=== PATIENT | female | born 1995 | race Caucasian/White ===

== ENCOUNTER 2017-10-14 12:30 | Emergency (ER) | payer SELFPAY ==
[~2017-10-14] VITALS: Ht 152.4 cm; Wt 57.8 kg
[~2017-10-14 12:30] MED LIST: BACTRIM DS1 TAB PO; CEPHALEXIN500 MG PO; IBUPROFEN600 MG PO; KEFLEX500 MG OR; LORTAB 7.57.5 MG PO; MUPIROCIN2 % EX; PRE-NATAL PO; ULTRAM50 M1 PO
[2017-10-14 13:31] LABS: URINE BILIRUBIN - DIPSTICK NEGATIVE (NEGATIVE); URINE BLOOD DIPSTICK NEGATIVE (NEGATIVE); URINE COLOR YELLOW; URINE GLUCOSE - DIPSTICK NEGATIVE (NEGATIVE); URINE KETONE NEGATIVE (NEGATIVE); URINE LEUK ESTERASE NEGATIVE (NEGATIVE); URINE NITRITE - DIPSTICK NEGATIVE (Negative); URINE PROTEIN - DIPSTICK NEGATIVE (NEG-TRACE); URINE UROBILINOGEN - DIPSTICK 0.2 E.U./dL (0.2)
[2017-10-14 13:32] LABS: URINE CLARITY CLEAR
[2017-10-14 13:34] LABS: BARBITURATES NEGATIVE (NEGATIVE); COCAINE NEGATIVE (NEGATIVE); METHADONE NEGATIVE (NEGATIVE); TETRAHYDROCANNABIONOL NEGATIVE (NEGATIVE); TRICYLIC ANTIDEPRESSANTS NEGATIVE (NEGATIVE)
[2017-10-14 13:35] LABS: OXCYCODONE NEGATIVE (NEGATIVE)
[2017-10-14 13:56] VITALS: BP 121/81
== END 2017-10-14 13:54 | disposition left against medical advice (07) | DRG 93 ==
LOC: ED 12:30
PROVIDERS: Emergency Medicine
DX: R20.0 Anesthesia of skin (principal); F17.210 Nicotine dependence, cigarettes, uncomplicated; Z91.19 Patient's noncompliance with other medical treatment and regimen

== ENCOUNTER 2017-10-25 15:13 | Emergency (ER) | payer SELFPAY ==
[~2017-10-25] VITALS: Ht 152.4 cm; Wt 80.0 kg
[2017-10-25] MEDS ORDERED: DOXYCYCL HYC100 MG PO (15:36)
[2017-10-25 15:48] VITALS: BP 156/88
== END 2017-10-25 15:57 | disposition home or self-care (01) | DRG 605 ==
LOC: ED 15:13
DX: S81.812A Laceration without foreign body, left lower leg, initial encounter (principal); F17.210 Nicotine dependence, cigarettes, uncomplicated; W20.8XXA Other cause of strike by thrown, projected or falling object, initial encounter; Y93.89 Activity, other specified

== ENCOUNTER 2018-07-04 09:52 | Emergency (ER) | payer SELFPAY ==
[~2018-07-04] VITALS: Ht 152.4 cm; Wt 60.0 kg
[~2018-07-04 09:52] MED LIST changes: +DOXYCYCL HYC100 MG PO
[2018-07-04] MEDS ORDERED: ULTRAM50 M1 PO (10:38)
[2018-07-04 10:46] VITALS: BP 113/64
== END 2018-07-04 10:52 | disposition home or self-care (01) | DRG 605 ==
LOC: ED 09:52
DX: S50.311A Abrasion of right elbow, initial encounter (principal); S80.211A Abrasion, right knee, initial encounter; F17.200 Nicotine dependence, unspecified, uncomplicated; V18.0XXA Pedal cycle driver injured in noncollision transport accident in nontraffic accident, initial encounter; Y93.55 Activity, bike riding

== ENCOUNTER 2019-01-03 14:05 | Emergency (ER) | payer SELFPAY ==
[~2019-01-03] VITALS: Ht 152.4 cm; Wt 70.0 kg
[2019-01-03 15:00] VITALS: BP 111/68
== END 2019-01-03 15:00 | disposition home or self-care (01) | DRG 605 ==
LOC: ED 14:05
PROC: 0HQGXZZ Repair Left Hand Skin, External Approach (ICD-10-PCS; principal; 2019-01-03)
DX: S61.412A Laceration without foreign body of left hand, initial encounter (principal); F17.210 Nicotine dependence, cigarettes, uncomplicated; W26.0XXA Contact with knife, initial encounter; Y92.009 Unspecified place in unspecified non-institutional (private) residence as the place of occurrence of the external cause

== ENCOUNTER 2019-03-11 11:07 | Emergency (ER) | payer SELFPAY ==
[~2019-03-11] VITALS: Ht 152.4 cm; Wt 65.0 kg
[2019-03-11 11:36] LABS: HEMATOCRIT 37.1 % (37.0-47.0); HEMOGLOBIN 12.4 g/dl (12.0-16.0); IMMATURE GRANULOCYTES 0.4 % (0.0-5.0); MEAN CELL VOLUME 84.7 fL CALC (80.0-100.0); MEAN CORPUSCULAR HGB 28.3 pG CALC (26.0-32.0); MEAN CORPUSCULAR HGB CONC 33.4 g/L CALC (32.0-36.0); NEUT# 5.05 thou/uL (2.00-7.15); RED BLOOD COUNT 4.38 mill/uL (4.20-5.60); RED CELL DISTRI WIDTH 12.7 % (11.5-15.5)
[2019-03-11 12:00] LABS: URINE BILIRUBIN - DIPSTICK NEGATIVE (NEGATIVE); URINE BLOOD DIPSTICK NEGATIVE (NEGATIVE); URINE COLOR YELLOW; URINE GLUCOSE - DIPSTICK NEGATIVE (NEGATIVE); URINE KETONE NEGATIVE (NEGATIVE); URINE LEUK ESTERASE NEGATIVE (NEGATIVE); URINE NITRITE - DIPSTICK NEGATIVE (Negative); URINE PROTEIN - DIPSTICK NEGATIVE (NEG-TRACE); URINE UROBILINOGEN - DIPSTICK 0.2 E.U./dL (0.2)
[2019-03-11 12:06] LABS: ALBUMIN 3.9 g/dL (3.2-5.0); ALKALINE PHOSPHATASE 102 u/l (38-126); ANION GAP 12 (6-22 (CALC)); BILIRUBIN, TOTAL 0.5 mg/dL (0.0-1.4); BUN 14 mg/dL (7-17); BUN/CREATININE RATIO 26 (12-20 (CALC)); CHLORIDE 109 mmol/l (95-108); CREATININE 0.5 mg/dL (0.5-1.0); GFR > 60 ML/MIN (>=60 (CALC)); GFR FOR AFR.AMER. > 60 ML/MIN (>=60 (CALC)); LIPASE 42 u/l (23-300); POTASSIUM 4.1 mmol/l (3.5-5.1); SGOT/AST 23 u/l (14-36); SODIUM 139 mmol/l (137-146)
[2019-03-11 12:07] LABS: BARBITURATES NEGATIVE (NEGATIVE); COCAINE NEGATIVE (NEGATIVE); METHADONE NEGATIVE (NEGATIVE); OXCYCODONE NEGATIVE (NEGATIVE); TETRAHYDROCANNABIONOL NEGATIVE (NEGATIVE); TRICYLIC ANTIDEPRESSANTS NEGATIVE (NEGATIVE)
[2019-03-11 12:08] LABS: CARBON DIOXIDE 22 mmol/l (22-30)
[2019-03-11] MEDS ORDERED: ZOFRAN4 MG/TAB PO (14:34)
[2019-03-11 14:37] VITALS: BP 109/62
== END 2019-03-11 14:50 | disposition home or self-care (01) | DRG 641 ==
LOC: ED 11:07
DX: E86.0 Dehydration (principal); F15.10 Other stimulant abuse, uncomplicated; R11.2 Nausea with vomiting, unspecified; R10.32 Left lower quadrant pain; R10.33 Periumbilical pain

== ENCOUNTER 2019-07-12 02:18 | Emergency (ER) | payer SELFPAY ==
[~2019-07-12] VITALS: Ht 152.4 cm; Wt 59.0 kg
[~2019-07-12 02:18] MED LIST changes: +ZOFRAN4 MG/TAB PO
[2019-07-12 03:26] VITALS: BP 126/64
== END 2019-07-12 03:31 | disposition home or self-care (01) | DRG 605 ==
LOC: ED 02:18
DX: S80.12XA Contusion of left lower leg, initial encounter (principal); W31.9XXA Contact with unspecified machinery, initial encounter

== ENCOUNTER 2021-02-28 17:02 | Emergency (ER) | payer SELFPAY ==
[~2021-02-28] VITALS: Ht 152.4 cm; Wt 70.0 kg
[2021-02-28 17:59] VITALS: BP 120/80
== END 2021-02-28 18:03 | disposition home or self-care (01) | DRG 605 ==
LOC: ED 17:02
PROC: 0HQGXZZ Repair Left Hand Skin, External Approach (ICD-10-PCS; principal; 2021-02-28)
DX: S61.412A Laceration without foreign body of left hand, initial encounter (principal); F17.210 Nicotine dependence, cigarettes, uncomplicated; W25.XXXA Contact with sharp glass, initial encounter; Y93.89 Activity, other specified; Y92.009 Unspecified place in unspecified non-institutional (private) residence as the place of occurrence of the external cause

== ENCOUNTER 2021-05-16 20:40 | Emergency (ER) | payer SELFPAY ==
[~2021-05-16] VITALS: Ht 149.9 cm; Wt 68.0 kg
[2021-05-16 20:45] VITALS: BP 119/54
[2021-05-16] MEDS ORDERED: CORTISPORIN OTI10 M2 AS (21:53)
== END 2021-05-16 22:05 | disposition home or self-care (01) | DRG 156 ==
LOC: ED 20:40
PROC: 09C47ZZ Extirpation of Matter from Left External Auditory Canal, Via Natural or Artificial Opening (ICD-10-PCS; principal; 2021-05-16)
DX: T16.2XXA Foreign body in left ear, initial encounter (principal); F17.200 Nicotine dependence, unspecified, uncomplicated; X58.XXXA Exposure to other specified factors, initial encounter

== ENCOUNTER 2021-06-28 20:56 | Emergency (ER) | payer SELFPAY ==
[~2021-06-28] VITALS: Ht 149.9 cm; Wt 73.0 kg
[~2021-06-28 20:56] MED LIST changes: +CORTISPORIN OTI10 M2 AS
[2021-06-28 21:30] VITALS: BP 124/86
== END 2021-06-28 22:10 | disposition home or self-care (01) | DRG 125 ==
LOC: ED 20:56
DX: T26.11XA Burn of cornea and conjunctival sac, right eye, initial encounter (principal); F17.210 Nicotine dependence, cigarettes, uncomplicated; X19.XXXA Contact with other heat and hot substances, initial encounter; Y92.009 Unspecified place in unspecified non-institutional (private) residence as the place of occurrence of the external cause

== ENCOUNTER 2022-01-20 13:06 | Emergency (ER) | payer SELFPAY ==
[~2022-01-20] VITALS: Ht 149.9 cm; Wt 68.0 kg
[2022-01-20 13:10] VITALS: BP 120/82
[2022-01-20 13:30] VITALS: BP 118/84
[2022-01-20 13:52] LABS: HEMATOCRIT 39.8 % (37.0-47.0); HEMOGLOBIN 12.9 g/dl (12.0-16.0); IMMATURE GRANULOCYTES 0.1 % (0.0-5.0); MEAN CELL VOLUME 87.5 fL CALC (80.0-100.0); MEAN CORPUSCULAR HGB 28.4 pG CALC (26.0-32.0); MEAN CORPUSCULAR HGB CONC 32.4 g/dL CAL (32.0-36.0); NEUT# 4.74 thou/uL (2.00-7.15); RED BLOOD COUNT 4.55 mill/uL (4.20-5.60); RED CELL DISTRI WIDTH 13.2 % (11.5-15.5)
[2022-01-20 14:00] VITALS: BP 109/78
[2022-01-20 14:21] LABS: ALBUMIN 4.1 g/dL (3.2-5.0); ALKALINE PHOSPHATASE 87 u/l (38-126); ANION GAP 13 (6-22 (CALC)); BILIRUBIN, TOTAL 0.7 mg/dL (0.0-1.4); BUN 17 mg/dL (7-17); BUN/CREATININE RATIO 19 (12-20 (CALC)); CARBON DIOXIDE 25 mmol/l (22-30); CHLORIDE 108 mmol/l (95-108); CREATININE 0.9 mg/dL (0.5-1.0); GFR > 60 ML/MIN (>=60 (CALC)); GFR FOR AFR.AMER. > 60 ML/MIN (>=60 (CALC)); LIPASE 40 u/l (23-300); POTASSIUM 3.9 mmol/l (3.5-5.1); SGOT/AST 22 u/l (14-36); SODIUM 142 mmol/l (137-146); TOTAL PROTEIN 7.6 g/dL (6.3-8.2)
[2022-01-20 14:37] LABS: URINE BILIRUBIN - DIPSTICK NEGATIVE (NEGATIVE); URINE BLOOD DIPSTICK LARGE (NEGATIVE); URINE COLOR YELLOW; URINE GLUCOSE - DIPSTICK NEGATIVE (NEGATIVE); URINE KETONE NEGATIVE (NEGATIVE); URINE LEUK ESTERASE NEGATIVE (NEGATIVE); URINE PROTEIN - DIPSTICK NEGATIVE (NEG-TRACE); URINE UROBILINOGEN - DIPSTICK 0.2 E.U./dL (0.2)
[2022-01-20 14:38] LABS: URINE NITRITE - DIPSTICK NEGATIVE (Negative)
[2022-01-20 14:44] LABS: URINE SQUAMOUS EPITHELIAL CELL FEW EPI/hpf (0-FEW)
[2022-01-20 15:49] VITALS: BP 109/78
== END 2022-01-20 15:45 | disposition left against medical advice (07) | DRG 392 ==
LOC: ED 13:06
PROVIDERS: Nurse Practitioner
DX: R10.32 Left lower quadrant pain (principal); F17.200 Nicotine dependence, unspecified, uncomplicated; Z91.19 Patient's noncompliance with other medical treatment and regimen

== ENCOUNTER 2022-07-19 04:21 | Emergency (ER) | payer SELFPAY ==
[~2022-07-19] VITALS: Ht 149.9 cm; Wt 68018.0 kg
[2022-07-19 04:33] VITALS: BP 133/94
[2022-07-19 04:45] VITALS: BP 124/86
[2022-07-19 05:00] VITALS: BP 126/88
[2022-07-19 05:15] VITALS: BP 132/71
[2022-07-19] MEDS ORDERED: BACTRIM DS1 TAB PO (05:27)
[2022-07-19 05:30] VITALS: BP 123/77
[2022-07-19 05:38] VITALS: BP 123/77
== END 2022-07-19 05:45 | disposition home or self-care (01) | DRG 603 ==
LOC: ED 04:21
DX: L03.115 Cellulitis of right lower limb (principal)

== ENCOUNTER 2022-08-30 21:16 | Emergency (ER) | payer SELFPAY ==
[2022-08-31] MEDS ORDERED: AMOXICILLIN500 MG PO (02:56)
== END 2022-08-30 21:55 | disposition left against medical advice (07) | DRG 951 ==
LOC: ED 21:16 → LWOBS 21:51
DX: Z53.21 Procedure and treatment not carried out due to patient leaving prior to being seen by health care provider (principal)

== ENCOUNTER 2022-08-31 02:28 | Emergency (ER) | payer SELFPAY ==
[~2022-08-31] VITALS: Ht 149.9 cm; Wt 63.0 kg
[2022-08-31] MEDS ORDERED: AMOXICILLIN500 MG PO (02:56)
[2022-08-31 02:57] VITALS: BP 112/76
== END 2022-08-31 03:16 | disposition home or self-care (01) | DRG 605 ==
LOC: ED 02:28
DX: S61.412A Laceration without foreign body of left hand, initial encounter (principal); W26.0XXA Contact with knife, initial encounter

== ENCOUNTER 2023-01-26 23:16 | Emergency (ER) | payer SELFPAY ==
[~2023-01-26] VITALS: Ht 149.9 cm; Wt 71.0 kg
[~2023-01-26 23:16] MED LIST changes: +AMOXICILLIN500 MG PO
[2023-01-27] MEDS ORDERED: VENTOLIN HFA IN (01:56)
[2023-01-27 02:00] VITALS: BP 118/72
== END 2023-01-27 02:03 | disposition home or self-care (01) | DRG 153 ==
LOC: ED 23:16
DX: J06.9 Acute upper respiratory infection, unspecified (principal); J98.01 Acute bronchospasm; F17.200 Nicotine dependence, unspecified, uncomplicated; Z20.822 Contact with and (suspected) exposure to COVID-19

== ENCOUNTER 2023-02-02 20:14 | Emergency (ER) | payer SELFPAY ==
[~2023-02-02] VITALS: Ht 149.9 cm; Wt 65.7 kg
[~2023-02-02 20:14] MED LIST changes: +VENTOLIN HFA IN
[2023-02-02 20:40] VITALS: BP 120/89
[2023-02-02 20:45] VITALS: BP 114/79
[2023-02-02] MEDS ORDERED: ULTRAM50 MG PO (20:55)
[2023-02-02] MEDS ORDERED: FLOXIN OTIC0.3 % AU (20:55)
[2023-02-02] MEDS ORDERED: AMOX/K CLAV875 M1 PO (20:55)
[2023-02-02 21:00] VITALS: BP 114/79; BP 117/89
== END 2023-02-02 21:27 | disposition home or self-care (01) | DRG 153 ==
LOC: ED 20:14
DX: H66.93 Otitis media, unspecified, bilateral (principal); F17.200 Nicotine dependence, unspecified, uncomplicated

== ENCOUNTER 2023-04-04 03:04 | Emergency (ER) | payer SELFPAY ==
[~2023-04-04] VITALS: Ht 149.9 cm; Wt 68.0 kg
[~2023-04-04 03:04] MED LIST changes: +AMOX/K CLAV875 M1 PO; +FLOXIN OTIC0.3 % AU; +ULTRAM50 MG PO
[2023-04-04] MEDS ORDERED: CETIRIZINE10 MG PO (04:40)
[2023-04-04] MEDS ORDERED: TRIAMCINOLON0.11 EX (04:40)
[2023-04-04] MEDS ORDERED: PREDNISONE20 MG PO (04:40)
[2023-04-04 05:20] VITALS: BP 121/71
== END 2023-04-04 05:20 | disposition home or self-care (01) | DRG 916 ==
LOC: ED 03:04
DX: T78.40XA Allergy, unspecified, initial encounter (principal); F17.200 Nicotine dependence, unspecified, uncomplicated; X58.XXXA Exposure to other specified factors, initial encounter

== ENCOUNTER 2023-04-09 00:07 | Emergency (ER) | payer SELFPAY ==
[~2023-04-09] VITALS: Ht 152.4 cm; Wt 65.7 kg
[~2023-04-09 00:07] MED LIST changes: +CETIRIZINE10 MG PO; +PREDNISONE20 MG PO; +TRIAMCINOLON0.11 EX
[2023-04-09 00:15] VITALS: BP 106/77
[2023-04-09] MEDS ORDERED: MUPIROCIN2 % EX (00:26)
[2023-04-09 00:30] VITALS: BP 98/56
[2023-04-09 00:45] VITALS: BP 106/81
== END 2023-04-09 00:45 | disposition home or self-care (01) | DRG 607 ==
LOC: ED 00:07
DX: S90.862A Insect bite (nonvenomous), left foot, initial encounter (principal); W57.XXXA Bitten or stung by nonvenomous insect and other nonvenomous arthropods, initial encounter

== ENCOUNTER 2023-04-27 00:42 | Emergency (ER) | payer SELFPAY ==
[~2023-04-27] VITALS: Ht 152.4 cm; Wt 63.0 kg
[2023-04-27 00:58] VITALS: BP 106/78
[2023-04-27 01:00] VITALS: BP 109/74
[2023-04-27 01:20] VITALS: BP 106/78
== END 2023-04-27 01:21 | disposition left against medical advice (07) | DRG 916 ==
LOC: ED 00:42
DX: T78.40XA Allergy, unspecified, initial encounter (principal); F17.210 Nicotine dependence, cigarettes, uncomplicated; X58.XXXA Exposure to other specified factors, initial encounter; Z53.29 Procedure and treatment not carried out because of patient's decision for other reasons

== ENCOUNTER 2023-10-10 18:09 | Emergency (ER) | payer SELFPAY ==
[~2023-10-10] VITALS: Ht 152.4 cm; Wt 65.8 kg
[2023-10-10 19:17] LABS: URINE BILIRUBIN - DIPSTICK Negative (NEGATIVE); URINE BLOOD DIPSTICK Moderate (NEGATIVE); URINE COLOR Yellow; URINE GLUCOSE - DIPSTICK Negative (NEGATIVE); URINE KETONE Negative (NEGATIVE); URINE LEUK ESTERASE Negative (NEGATIVE); URINE NITRITE - DIPSTICK Negative (Negative); URINE PROTEIN - DIPSTICK Negative (NEG-TRACE); URINE SPECIFIC GRAVITY >=1.030; URINE UROBILINOGEN - DIPSTICK 0.2 E.U./dL (0.2)
[2023-10-10] MEDS ORDERED: valACYclovir 500 MG TAB PO ONE (19:20)
[2023-10-10 19:30] LABS: URINE SQUAMOUS EPITHELIAL CELL FEW EPI/hpf (0-FEW); URINE WBC 0-2 WBC/hpf (0-5)
[2023-10-10] MEDS ORDERED: VALTREX1 GM PO (19:39)
[2023-10-10 20:10] VITALS: BP 122/70
== END 2023-10-10 20:12 | disposition home or self-care (01) | DRG 759 ==
LOC: ED 18:09
PROVIDERS: Nurse Practitioner
DX: A60.04 Herpesviral vulvovaginitis (principal); F17.210 Nicotine dependence, cigarettes, uncomplicated

== ENCOUNTER 2023-10-23 16:59 | Emergency (ER) | payer SELFPAY ==
[~2023-10-23] VITALS: Ht 152.4 cm; Wt 64.0 kg
[2023-10-23] VITALS (7 sets, daily range): BP systolic 99–122; BP diastolic 62–89
[~2023-10-23 16:59] MED LIST changes: +VALTREX1 GM PO
[2023-10-23] MEDS ORDERED: VIBRAMYCIN100 M2 PO (18:25)
[2023-10-23] MEDS ORDERED: DOXYCYCLINE HYCLATE 100 MG/CAP PO ONE (18:30)
== END 2023-10-23 18:41 | disposition home or self-care (01) | DRG 603 ==
LOC: ED 16:59
DX: L03.116 Cellulitis of left lower limb (principal); F17.200 Nicotine dependence, unspecified, uncomplicated

== ENCOUNTER 2024-03-02 01:00 | Emergency (ER) | payer SELFPAY ==
[~2024-03-02] VITALS: Ht 152.4 cm; Wt 66.0 kg
[~2024-03-02 01:00] MED LIST changes: +MOTRIN800 MG PO; +PERCOCET 5/321 COMBO PO; +VIBRAMYCIN100 M2 PO
[2024-03-02 02:29] VITALS: BP 126/83
== END 2024-03-02 02:29 | disposition home or self-care (01) | DRG 607 ==
LOC: ED 01:00
DX: A63.0 Anogenital (venereal) warts (principal); J45.909 Unspecified asthma, uncomplicated; F17.200 Nicotine dependence, unspecified, uncomplicated